=== PATIENT | male | born 1995 | race African-American/Black ===

== ENCOUNTER 2017-07-29 09:46 | Emergency (ER) | payer MEDICAID, OTHER ==
[~2017-07-29] VITALS: Ht 190.5 cm; Wt 96.3 kg
[2017-07-29 11:16] LABS: BASOPHILS # (AUTO) 0.06 x10^3/uL (0-0.1); BASOPHILS % (AUTO) 1 % (0-1); EOSINOPHILS # (AUTO) 0.16 x10^3/uL (0-0.4); EOSINOPHILS % (AUTO) 2 % (1-7); LYMPHOCYTES # (AUTO) 2.11 x10^3/uL (1-3.4); LYMPHOCYTES % (AUTO) 31 % (22-44); MD NO; MEAN CORPUSCULAR HEMOGLOBIN 28.9 pg (27.5-34.5); MEAN CORPUSCULAR HGB CONC 33.3 g/dL (33.2-36.2); MEAN CORPUSCULAR VOLUME 86.7 fL (81-97); MEAN PLATELET VOLUME 7.4 fL (7.4-10.4); MONOCYTES % (AUTO) 9 % (2-9); NEUTROPHILS # (AUTO) 3.83 x10^3/uL (1.8-6.8); NEUTROPHILS % (AUTO) 57 % (42-75); PLATELET COUNT 252 x10^3/uL (130-400); RED BLOOD COUNT 5.16 x10^6/uL (4.38-5.82); RED CELL DISTRIBUTION WIDTH 13.1 % (9.4-14.8)
[2017-07-29 11:28] LABS: ALBUMIN 3.7 g/dL (3.4-5.0); ANION GAP 6 mmol/L (5-15); CALCIUM 8.6 mg/dL (8.5-10.1); CHLORIDE 108 mmol/L (98-107)
[2017-07-29 11:32] LABS: ALANINE AMINOTRANSFERASE 20 U/L (12-78); ALKALINE PHOSPHATASE 46 U/L (45-117); BILIRUBIN,TOTAL 0.7 mg/dL (0.2-1.0); CREATININE 0.85 mg/dL (0.7-1.3); TOTAL PROTEIN 6.7 g/dL (6.4-8.2)
[2017-07-29 11:36] LABS: MICROSCOPIC AUTO
[2017-07-29 11:42] LABS: CULTURE INDICATED? YES
[2017-07-29] MEDS ORDERED: OMNIPAQUE 350 MG/ML, 150 ML BOTTLE ONE (14:11)
[2017-07-29 15:32] VITALS: BP 124/77
== END 2017-07-29 15:34 | disposition home or self-care (01) ==
LOC: ED 15:32
DX: R10.9 Unspecified abdominal pain (principal); R31.29 Other microscopic hematuria; Z87.891 Personal history of nicotine dependence
CPT/HCPCS: 36415; 74021; 74178; 80053; 81001; 83690; 85025; 87086; 93005; 99285; Q9967

== ENCOUNTER 2019-05-15 00:37 | Emergency (ER) | payer MEDICAID ==
[~2019-05-15] VITALS: Ht 188 cm; Wt 100.0 kg
--- NOTE | 2019-05-15 00:50 | NUR ---
Friend's contact info: [employer] [phone]
[2019-05-15] MEDS ORDERED: ZIPRASIDONE 20 MG INJ IM ONE ×2 (01:00→01:21)
--- NOTE | 2019-05-15 01:16 | NUR ---
PT BOUGHT IN BY PD FOR POSSIBLE SUICIDE ATTEMPT. PT DENYING AND UNCOOPERATIVE. PT PLACED IN RESTRAINTS. PT HAS SUPERFICIAL CUTS TO LEFT ARM. MD SAW PT AND PT REFUSED TO ANSWER QUESTIONS. PT TO BE MEDICATED AND REASSESSED.
--- NOTE | 2019-05-15 01:38 | NUR ---
PT MEDICATED AND IN RESTRAINTS. PT YELLING AT STAFF AND REFUSING LABS. PROCESS REPEATEDLY EXPLAINED AND PT REFUSING. REPORT TO CESAR
--- NOTE | 2019-05-15 01:54 | NUR ---
PT CONTINUES TO REFUSE LABS.
--- NOTE | 2019-05-15 02:03 | NUR ---
PT NOW MUCH MORE CALM. PT ALLOWED BLOOD DRAW.
[2019-05-15 02:04] LABS: BASOPHILS # (AUTO) 0.02 x10^3/uL (0-0.1); BASOPHILS % (AUTO) 0 % (0-1); EOSINOPHILS # (AUTO) 0.07 x10^3/uL (0-0.4); EOSINOPHILS % (AUTO) 1 % (1-7); LYMPHOCYTES # (AUTO) 2.05 x10^3/uL (1-3.4); LYMPHOCYTES % (AUTO) 23 % (22-44); MD NO; MEAN CORPUSCULAR HEMOGLOBIN 30.2 pg (27.5-34.5); MEAN CORPUSCULAR HGB CONC 33.1 g/dL (33.2-36.2); MEAN CORPUSCULAR VOLUME 91.4 fL (81-97); MEAN PLATELET VOLUME 6.9 fL (7.4-10.4); MONOCYTES # (AUTO) 0.58 x10^3/uL (0.2-0.8); MONOCYTES % (AUTO) 6 % (2-9); NEUTROPHILS # (AUTO) 6.27 x10^3/uL (1.8-6.8); NEUTROPHILS % (AUTO) 70 % (42-75); PLATELET COUNT 332 x10^3/uL (130-400); RED CELL DISTRIBUTION WIDTH 13.6 % (9.4-14.8)
--- NOTE | 2019-05-15 02:16 | NUR ---
TRIALED REMOVAL FROM RESTRAINTS. PT FAILED TRIAL. SECURITY ASSISTED IN REMOVING PTS CLOTHING. CLOTHING NOW IN ONE BAG. PT IN GOWN. PT NOW IN TWO POINT RESTRAINTS. PT VERBALLY AGGRESSIVE.
[2019-05-15 02:27] LABS: ANION GAP 10 mmol/L (5-15); CALCIUM 8.7 mg/dL (8.5-10.1); CHLORIDE 110 mmol/L (98-107); CREATININE 1.02 mg/dL (0.7-1.3); SALICYLATE LEVEL < 1.7 mg/dL (2.8-20.0)
--- NOTE | 2019-05-15 03:01 | NUR ---
NEW RESTRAINT FORM SIGNED BY THIS RN AND CASSY BORJA
--- NOTE | 2019-05-15 03:38 | NUR ---
THIS RN AND MD TO BEDSIDE. PT MOSTLY SLEEPING HOWEVER WHEN AWOKEN IS AGGRESSIVE AND THREATENING. MD AND RN IN AGREEMENT PT TO REMAIN IN RESTRAINTS UNTIL HE DOES NOT POSE A THREAT TO STAFF OR SELF.
--- NOTE | 2019-05-15 05:01 | NUR ---
ATTEMPTED TO SPEAK WITH PT MULTIPLE TIMES ABOUT BEING RELEASED FROM RESTRAINTS, PT THREATENING AND UNCOOPERATIVE.
--- NOTE | 2019-05-15 05:07 | NUR ---
PT REMOVED FROM RESTRAINTS WHILST SLEEPING.
--- NOTE | 2019-05-15 06:59 | NUR ---
RECEIVED REPORT FROM MALIK GUERRERO. PATIENT LAYING IN BED, EYES CLOSED, RESPIRATIONS EVEN AND UNLABORED.
--- NOTE | 2019-05-15 08:15 | NUR ---
PT ON PHONE IN HALLWAY. PT STEADY ON FEET.
[2019-05-15 08:34] VITALS: BP 155/87
--- NOTE | 2019-05-15 08:34 | NUR ---
REPORT SWETA FROM JOVAN GAN. SAFETY PRECAUTIONS IN PLACE
--- NOTE | 2019-05-15 09:09 | NUR ---
pt girlfriends mother : Yudelka [phone]
[2019-05-15 09:25] LABS: AMPHETAMINE SCREEN, URINE Negative (Negative); BARBITURATE SCREEN, URINE Negative (Negative); BENZODIAZEPINE SCREEN, URINE Negative (Negative); CANNABINOID SCREEN, URINE Positive (Negative); COCAINE SCREEN, URINE Negative (Negative); METHADONE SCREEN, URINE Negative (Negative); OPIATE SCREEN, URINE Negative (Negative)
--- NOTE | 2019-05-15 10:11 | NUR ---
PT RESTING, SAFETY PRECATIONS IN PLACE.
--- NOTE | 2019-05-15 10:31 | NUR ---
MICK FASHION DESIGN PROFESSOR AT BEDSIDE FOR EVALUATION
--- NOTE | 2019-05-15 10:52 | NUR ---
discharge instructions reviewed
== END 2019-05-15 10:54 | disposition home or self-care (01) ==
LOC: ED 06:27
DX: R45.851 Suicidal ideations (principal); F19 Other psychoactive substance related disorders; F10.120 Alcohol abuse with intoxication, uncomplicated; F41.9 Anxiety disorder, unspecified; F43.0 Acute stress reaction; Y90.9 Presence of alcohol in blood, level not specified
CPT/HCPCS: 36415; 80048; 80307; 82040; 85025; 96372; 99284; J3486

== ENCOUNTER 2020-10-02 19:56 | Emergency (ER) | payer SELFPAY ==
[~2020-10-02] VITALS: Ht 190.5 cm; Wt 110.0 kg
[2020-10-02 20:04] VITALS: BP 146/92
--- NOTE | 2020-10-02 20:07 | NUR ---
PT BIB [facility], STATES FEELING ANXIOUS. PT DENIES AND HI, SI. PT STATES HE WAS TAKING [place] WHILE IN [facility] DAYS, STATES REFUSED SCRIPT WHEN D/C FROM [facility]. AWAITING ERMD ASSESSMENT.
--- NOTE | 2020-10-02 20:37 | NUR ---
ERMD AT BEDSIDE FOR ASSESSMENT.
--- NOTE | 2020-10-02 20:56 | NUR ---
REPORT TO JULIETA GAN.
== END 2020-10-02 21:49 | disposition home or self-care (01) ==
LOC: ED 20:26
DX: F41.9 Anxiety disorder, unspecified (principal); F22 Delusional disorders; Z72.9 Problem related to lifestyle, unspecified
CPT/HCPCS: 99283